=== PATIENT | male | born 1975 | race Caucasian/White ===

== ENCOUNTER 2019-07-03 15:23 | Day surgery (SDC) | payer BC ==
[~2019-07-03] VITALS: Ht 175.3 cm; Wt 96.4 kg
[2019-07-03] MEDS ORDERED: PRINIVIL10 MG PO (15:32)
[2019-07-03] MEDS ORDERED: GLUCOTROL XL2.5 MG PO (15:32)
[2019-07-03] MEDS ORDERED: MEVACOR10 MG PO (15:32)
[2019-07-03] MEDS ORDERED: BACTRIM DS 8001 TAB PO (15:32)
[2019-07-03] MEDS ORDERED: MOBIC15 MG PO (15:33)
[2019-07-03 15:51] VITALS: BP 140/85; PULSE 64; TEMP 98.3
[2019-07-03] MEDS ORDERED: NORCO 325 MG-51 TAB PO (16:22)
[2019-07-03 16:23] VITALS: BP 96/60; PULSE 71; TEMP 97.5
[2019-07-03] MEDS ORDERED: DOXYCYCLINE 10100 MG PO (16:23)
[2019-07-03] MEDS ORDERED: CIPRO 500MG TA500 MG PO (16:23)
--- NOTE | 2019-07-03 16:23 | NUR ---
The patient arrived back to [facility] from the operating room at this time. The patient appears alert and oriented and denies any pain or nausea at this time. Post operative vital signs were started at this time. The patient's is at his bedside at this time. The patient's dressing to his right shoulder appears clean, dry and intact. The patient agrees to try some cranberry juice. Call light is within reach. Will continue to monitor the patient.
[2019-07-03 16:38] VITALS: BP 99/56; PULSE 74
--- NOTE | 2019-07-03 16:38 | NUR ---
The patient has finished his cranberry juice and verbalizes the desire to be discharged home. The nurse informed the patient that he was required to stay for 30 minutes post operatively. The patient's IV was INT'd and he is going to get dressed and use the bathroom before discharge.
[2019-07-03 16:53] VITALS: BP 112/72; PULSE 65
--- NOTE | 2019-07-03 16:53 | NUR ---
Discharge instructions were reviewed with the patient and his at this time. They both veberbalized understanding and have no questions for the nurse at this time. The patient is ready to be escorted out.
--- NOTE | 2019-07-03 17:05 | NUR ---
The patient was escorted out via ambulation to a private vehicle by CORY Feliciano. The patient's belongings and discharge paperwork were sent with him. The patient's is present to drive him home.
== END 2019-07-03 17:05 | disposition home or self-care (01) ==
LOC: SDCO 15:23
DX: L02.413 Cutaneous abscess of right upper limb (principal)
CPT/HCPCS: J0690; J2405; J2704; J3010; J7030